=== PATIENT | male | born 1995 | race American Indian/Alaskan Native ===

== ENCOUNTER → 2016-12-18 | Emergency (ER) | payer OTHER ==
[~2016-12-18] VITALS: Ht 182.9 cm; Wt 97.5 kg
[~2016-12-18] MED LIST: IBUPROFEN600 MG PO
== END | disposition home or self-care (01) ==
LOC: ED 12:42
DX: S93.402A Sprain of unspecified ligament of left ankle, initial encounter (principal); V80.010A Animal-rider injured by fall from or being thrown from horse in noncollision accident, initial encounter
CPT/HCPCS: 73610; 73630; 96372; 99283; J1885